=== PATIENT | male | born 1955 | race Caucasian/White ===

== ENCOUNTER 2023-01-15 15:25 | Emergency (ER) | payer MEDICARE, SELFPAY ==
[2023-01-15] VITALS (61 sets, daily range): BP systolic 86–132; BP diastolic 57–81; PULSE 89–118; RESP 15–41; TEMP 36.6; O2SAT 96–100
--- NOTE | 2023-01-15 15:51 | DI.RAD.S_ITS ---
PROCEDURE: XR CHEST 1V INDICATIONS: chest pain TECHNIQUE: One view of the chest was acquired. COMPARISON: None. FINDINGS: Surgical changes and devices: None. Lungs and pleura: Lungs are clear. No pleural effusions or pneumothorax. Mediastinum: Mediastinal contours appear normal. Heart size is normal. Bones and chest wall: No suspicious bony lesions. Overlying soft tissues appear unremarkable. IMPRESSION: No acute process Dictated by: Emmie Galvan M.D. on 01/15/2023 at 16:26 Approved by: Emmie Galvan M.D. on 01/15/2023 at 16:27
[2023-01-15] MEDS: ASPIRIN 81 MG CHEW TAB 324 MG PO (16:08)
[2023-01-15 16:11] LABS: Add Manual Diff / Slide Review NO; Basophils Absolute Auto 100 /uL (0-100); Basophils Percent Auto 0.5 % (0-2); Eosinophils Absolute Auto 100 /uL (0-450); Eosinophils Percent Auto 0.7 % (2-4); Hematocrit 40.7 % (41-53); Hemoglobin 13.9 g/dL (13.5-17.5); Lymphocytes Absolute Auto 700 /uL (1100-4500); Lymphocytes Percent Auto 5.6 % (25-40); Mean Corpuscular HGB Conc 34.1 % (30-36); Mean Corpuscular Hemoglobin 29.1 PG (26-34); Mean Corpuscular Volume 85.5 fL (80-100); Monocytes Absolute Auto 1200 /uL (0-900); Monocytes Percent Auto 9.3 % (3-14); Neutrophils Absolute Auto 10800 /uL (1500-7000); Neutrophils Percent Auto 83.9 % (50-75); Platelet Count 365 X10^3/uL (150-400); Red Blood Cell Count 4.76 X10^6/uL (4.5-5.9); Red Cell Distribution Width 14.7 % (11.6-14.8); White Blood Cell Count 12.9 X10^3/uL (4.5-11.0)
[2023-01-15 16:22] LABS: Alanine Aminotransferase 22 IU/L (<50); Albumin 4.1 g/dL (3.5-5.0); Albumin Globulin Ratio 1.1 (1.0-2.8); Alkaline Phosphatase 238 U/L (38-126); Aspartate Aminotransferase 32 IU/L (17-59); BUN Creatinine Ratio 17.4 (6-22); Bilirubin Total 0.6 mg/dL (0.2-1.3); Blood Urea Nitrogen 19 mg/dL (9-20); Carbon Dioxide 24 mmol/L (22-32); Chloride 95 mmol/L (98-107); Creatine Kinase 28 U/L (55-170); Estimated Glomerular Filt Rate > 60 mL/min (>60); Globulin 3.6 g/dL (1.7-4.1); Glucose 188 mg/dL (80-110); HEMOLYSIS < 15 (0-50); Lipase 112 U/L (23-300); Magnesium 2.1 mg/dL (1.6-2.3); Potassium 3.2 mmol/L (3.4-5.1); Sodium 131 mmol/L (137-145); Total Protein 7.7 g/dL (6.3-8.2)
[2023-01-15 16:32] LABS: NT-proBNP (BNP-Adult 18+) 558 pg/mL (<125); Troponin I 0.013 ng/mL (0.01-0.034)
[2023-01-15 16:38] LABS: INR 1.1 (0.9-1.3); Prothrombin Time 13.1 SECONDS (9.4-12.5)
[2023-01-15 16:41] LABS: PTT Partial Thromboplastin Tim 28 SECONDS (25.1-36.5)
--- NOTE | 2023-01-15 17:21 | PC.NURSE ---
Pt attempts to void 3 times and is unsuccessful. Last void at 1000. Bladder scan to be done and provider to be made aware.
[2023-01-15 17:36] LABS: Lactate (Lactic Acid) 1.6 mmol/L (0.7-2.1)
[2023-01-15] MEDS: LIDOCAINE 2% (GLYDO) 6 ML GEL TOP (17:43)
[2023-01-15 17:56] LABS: Procalcitonin 0.27 ng/mL (<0.5)
[2023-01-15 18:19] LABS: Appearance Urine UA CLEAR; Bilirubin Urine UA 1+ (NEGATIVE); Color Urine UA YELLOW; Glucose Urine UA NEGATIVE (Negative); Ketones Urine UA TRACE (NEGATIVE); Leukocyte Esterase Urine UA NEGATIVE (NEGATIVE); Nitrite Urine UA NEGATIVE (Negative); Occult Blood Urine UA NEGATIVE (Negative); Protein Urine UA 1+ (Negative); Specific Gravity Urine UA >=1.030 (1.000-1.035); pH Urine UA 5.5 (4.5-8.0)
[2023-01-15 18:24] LABS: D Dimer 4757 ng/ml (<500)
[2023-01-15 18:34] LABS: Amorphous Sediment Urine 1+; Bacteria Urine None Seen; RBC Urine None Seen (0-5/HPF); Renal Epithelial Cells Urine 1-5/HPF (0-1/HPF); Squamous Epithelial Cell Urine None Seen (0-5/HPF); WBC Urine None Seen (0-5/HPF)
[2023-01-15 18:35] LABS: Culture Indicated Urine Cult Not Indicated; Hyaline Casts Urine 1-5/LPF
[2023-01-15 18:37] LABS: Adenovirus Not Detected (Not Detect); B. parapertussis Not Detected (Not Detecte); Bordetella pertussis Not Detected (Not Detect); Chlamydophila pneumoniae Not Detected (Not Detect); Coronavirus 229E Not Detected (Not Detect); Coronavirus HKU1 Not Detected (Not Detect); Coronavirus NL 63 Not Detected (Not Detect); Coronavirus OC43 Not Detected (Not Detect); Human Metapneumovirus Not Detected (Not Detect); Human Rhinovirus/Enterovirus Not Detected (Not Detect); Influenza A Not Detected (Not Detect); Influenza B Not Detected (Not Detect); Mycoplasma pneumoniae Not Detected (Not Detect); Parainfluenza Virus 1 Not Detected (Not Detect); Parainfluenza Virus 2 Not Detected (Not Detect); Parainfluenza Virus 3 Not Detected (Not Detect); Parainfluenza Virus 4 Not Detected (Not Detect); Respiratory Syncytial Virus Not Detected (Not Detect); SARS- CoV-2 Not Detected (Not Detecte)
--- NOTE | 2023-01-15 18:43 | DI.CT.S_ITS ---
PROCEDURE: CT ABDOMEN PELVIS W CON INDICATIONS: abd pain LLq TECHNIQUE: After the administration of oral and IV contrast, axial sections were acquired from the lung bases to the pubic symphysis. Coronal and sagittal reformats were performed. For radiation dose reduction, the following was used: automated exposure control, adjustment of mA and/or kV according to patient size. COMPARISON: [facility], CT, CHEST/ABD/PELVIS W/CON (PNL), 04/24/2012, 10:18. [facility], CT, CHEST/ABD/PELVIS W/CON (PNL), 08/21/2012, 9:11. [facility], CT, CHEST/ABD/PELVIS W/CON (PNL), 02/18/2013, 10:26. [facility], CT, CT ANGIO CHEST PE PROTOCOL, 01/15/2023, 18:49. FINDINGS: Image quality: Excellent. Lung bases: Unremarkable. Heart: Advanced coronary artery calcification can be seen. ABDOMEN: Liver: No solid mass. There is a nodular appearing liver. There are poorly defined low-density masses seen within both the right lower and the left liver. These are new compared to 2014. The largest on the right measures up to 2.9 cm. The largest on the left measures up to 2.4 cm. Gallbladder: The gallbladder appears distended. No gallbladder wall thickening is seen. Biliary ducts: No biliary dilation. Pancreas: No ductal dilation. Spleen: Numerous low-density foci can be seen within the spleen, which appear mildly worse compared to 2014. Adrenal Glands: No adrenal nodules. Kidneys and Ureters: No hydronephrosis. No solid mass. Exophytic from the anterior aspect of the left kidney, there is a 2 cm mildly hyperdense cyst, which is only slightly progressed compared to 2014. At the inferior pole of the right kidney, there is a simple cyst seen. Stomach and Bowel: Normal colonic caliber, without significant wall thickening. Colonic diverticulosis is seen, without findings of active diverticulitis. Peritoneum: A hpsr-dn-dlqxsugg volume of simple appearing ascites is seen. No free air. The omentum appears irregular, with areas of enhancement. Ventral Wall: A moderately sized fat containing periumbilical hernia is seen, which is increased in size compared to 2014. Abdominal Nodes: Mildly enlarged upper abdominal lymph nodes are seen, including a asha hepatis lymph node on series 2, image 32 measuring 20 x 12 mm. Vessels: Aorta and inferior vena cava are normal in size. PELVIS: Pelvic Organs: Unremarkable. Bladder: A Zhu catheter is seen, which decompresses the bladder. Pelvic Nodes: No enlarged lymph nodes. Miscellaneous: Bilateral fat containing inguinal hernias are seen. Bones: Degenerative changes are seen throughout, particular involving the lower lumbar spine. IMPRESSION: Cirrhotic appearing liver, with poorly defined poorly enhancing lesions within the liver. Neoplasm is suspected, although differential diagnosis includes regenerating nodules. - For further evaluation, please consider a dedicated liver protocol MRI without and with IV contrast (assuming that there is no contraindication to MRI). There are low-density lesions seen within the spleen, which are mildly progressed compared to 2014. These are nonspecific, yet felt most likely be benign. There is a fvrn-qe-bvcgjtpk volume simple ascites. Mildly enlarged upper abdominal lymph nodes are seen, which are slightly progressed compared to 2014 and also most likely benign. Abnormal omentum, with areas of enhancement. Although this may simply be related to the patient's ascites, please consider peritoneal carcinomatosis. Additional findings: Advanced coronary artery calcification Likely benign left kidney complex cyst. Moderate periumbilical hernia Diverticulosis, without active diverticulitis Zhu catheter Bilateral fat containing inguinal hernias Dictated by: Yohannes Byrd M.D. on 01/15/2023 at 18:14 Approved by: Yohannes Byrd M.D. on 01/15/2023 at 18:24
--- NOTE | 2023-01-15 18:43 | DI.CT.S_ITS ---
PROCEDURE: CT ANGIO CHEST PE PROTOCOL INDICATIONS: pe suspected positive dimer TECHNIQUE: After the administration of intravenous contrast, 2 mm thick sections acquired from the pulmonary apices to the posterior costophrenic angles. 3-dimensional maximum intensity projection (MIP) coronal and sagittal reformats were then acquired through the thorax. For radiation dose reduction, the following was used: automated exposure control, adjustment of mA and/or kV according to patient size. COMPARISON: None. FINDINGS: Image quality: Diagnostic. Pulmonary arteries: Pulmonary arteries are normal in size, and demonstrate no intraluminal filling defects to suggest central pulmonary embolism. Lungs and pleura: Ill-defined patchy ground-glass opacities are seen scattered in posterior aspect of left upper lobe and bilateral lower lobes. Scattered atelectasis at bilateral lung bases also seen. No pleural effusions or pneumothorax. Central and peripheral airways are patent. Mediastinum: Heart size is normal, without pericardial effusion. Moderate atherosclerotic calcifications are noted in coronary vessels and thoracic aorta. No mediastinal or hilar adenopathy. Thoracic aorta is normal in caliber and enhancement. Esophagus is normal in caliber, without hiatal hernia. Bones and chest wall: No suspicious bony lesions. No acute vertebral body compression fracture. Degenerative disc disease throughout thoracic spine is seen with suggestion of DISH. No axillary or supraclavicular adenopathy. No thyroid nodules which require sonographic follow up, per consensus guidelines. Upper Abdomen: Moderate ascites fluid is seen in visualized upper abdomen. Please correlate with CT of abdomen and pelvis findings. IMPRESSION: 1. No pulmonary emboli. No thoracic aortic aneurysm or gross dissection. 2. Subtle hazy ground-glass opacities scattered in bilateral lower lobes and left upper lobe which may represent patchy area of pneumonitis versus pulmonary edema. No pleural effusion or pneumothorax. Airway is patent. 3. No mediastinal or hilar lymphadenopathy. Moderate atherosclerotic disease. 4. Moderate ascites fluid in included upper abdomen. Please correlate with CT of abdomen and pelvis findings. Dictated by: Juventino Appiah M.D. on 01/15/2023 at 19:40 Approved by: Juventino Appiah M.D. on 01/15/2023 at 19:48
--- NOTE | 2023-01-15 18:45 | ED.CHESTPAIN ---
HPI - Chest Pain General Chief Complaint: Chest Pain Stated Complaint: weakness, dyspnea, SOB, chest pain Time Seen by Provider: 01/15/23 17:24 Source: patient and family Mode of arrival: Wheelchair History of Present Illness HPI narrative: This is a 67-year-old man with a history of coronary artery disease, hypertension, hyperlipidemia, type 2 diabetes, lung cancer presently in remission who is here with 2 weeks of profound fatigue and dyspnea with ambulation. He says that he is had some very brief episodes of chest pain that lasts for ?seconds? and he describes these as ?normal? for him. Other than his fatigue he is had some left lower quadrant abdominal pain. He is not noted fevers chills or night sweats. He was seen 5 days ago would be general diagnosed with a urinary tract infection and started on Keflex which she is been taking. States he is also had surgery for parathyroid tumor in the past. Related Data Home Medications Medication Instructions Recorded Confirmed amlodipine 10 mg tablet 10 mg PO ONCE PM 01/15/23 01/15/23 cephalexin 500 mg capsule 500 mg PO 3XD 01/15/23 01/15/23 gemfibrozil 600 mg tablet 600 mg PO BID 01/15/23 01/15/23 lisinopril 5 mg tablet 5 mg PO DAILY 01/15/23 01/15/23 metformin 1,000 mg tablet 500 mg PO BID 01/15/23 01/15/23 rosuvastatin 40 mg tablet 40 mg PO DAILY 01/15/23 01/15/23 Allergies Allergy/AdvReac Type Severity Reaction Status Date / Time baclofen AdvReac Verified 01/15/23 15:57 Patient History Social History Smoking Status: Never smoker Smoking Status: Never smoker alcohol intake frequency: other Substance Use Type: does not use Exam Initial Vital Signs Initial Vital Signs: Vital Signs Temperature 98 F 01/15/23 15:52 Pulse Rate 104 H 01/15/23 15:52 Respiratory Rate 18 01/15/23 15:52 Blood Pressure 107/64 01/15/23 15:52 Pulse Oximetry 99 01/15/23 15:52 Oxygen Delivery Method Room Air 01/15/23 15:52 Course Orders Ordered: ED Orders 01/15/23 16:24 Respiratory Panel (Film Array) Stat 01/15/23 17:40 Blood Culture Stat 01/15/23 17:56 Ictotest Urine Stat UA Complete [Urinalysis and Microscopic] Stat 01/15/23 18:43 CT abdomen pelvis w con Stat CT angio chest PE protocol Stat Discontinued Medications Aspirin (Aspirin 81 Mg Chew Tab) 324 mg PO NOW ONE Stop: 01/15/23 15:52 Last Admin: 01/15/23 16:08 Dose: 324 mg Documented By: ROSANNE Lidocaine HCl (Lidocaine 2% (Glydo) 6 Ml Gel) 6 ml TOP NOW ONE Stop: 01/15/23 17:41 Last Admin: 01/15/23 17:43 Dose: 6 ml Documented By: SB Potassium Chloride (Potassium Chloride 20 Meq/15 Ml Udc) 20 meq PO NOW ONE Stop: 01/15/23 20:56 Last Admin: 01/15/23 21:01 Dose: 20 meq Documented By: ROSANNE Vital Signs Vital signs: Vital Signs - 8 hr 01/15/23 17:13 01/15/23 17:14 01/15/23 17:14 Pulse Rate 118 H 92 H Respiratory Rate 19 26 H Blood Pressure 86/63 L Pulse Oximetry 98 Oxygen Delivery Method 01/15/23 17:15 01/15/23 17:16 01/15/23 17:16 Pulse Rate 109 H 106 H Respiratory Rate 26 H 25 H Blood Pressure 95/69 Pulse Oximetry 99 99 Oxygen Delivery Method Room Air 01/15/23 17:20 01/15/23 17:20 01/15/23 17:25 Pulse Rate 105 H Respiratory Rate 18 Blood Pressure 96/63 97/61 Pulse Oximetry 100 Oxygen Delivery Method 01/15/23 17:25 01/15/23 17:30 01/15/23 17:30 Pulse Rate 105 H 105 H Respiratory Rate 21 18 Blood Pressure 98/64 Pulse Oximetry 99 98 Oxygen Delivery Method 01/15/23 17:35 01/15/23 17:40 01/15/23 17:45 Pulse Rate 106 H 108 H 108 H Respiratory Rate 16 20 30 H Blood Pressure Pulse Oximetry 98 97 98 Oxygen Delivery Method 01/15/23 17:50 01/15/23 17:55 01/15/23 17:59 Pulse Rate 104 H 101 H 101 H Respiratory Rate 28 H 34 H 23 Blood Pressure Pulse Oximetry 98 98 99 Oxygen Delivery Method Room Air 01/15/23 18:00 01/15/23 18:00 01/15/23 18:05 Pulse Rate 101 H 100 H Respiratory Rate 27 H 24 Blood Pressure 103/66 Pulse Oximetry 99 99 Oxygen Delivery Method 01/15/23 18:10 01/15/23 18:15 01/15/23 18:15 Pulse Rate 101 H 101 H Respiratory Rate 20 21 Blood Pressure 112/71 Pulse Oximetry 98 99 Oxygen Delivery Method 01/15/23 18:20 01/15/23 18:25 01/15/23 18:30 Pulse Rate 100 H 100 H Respiratory Rate 17 18 Blood Pressure 107/65 Pulse Oximetry 97 96 Oxygen Delivery Method 01/15/23 18:30 01/15/23 18:35 01/15/23 18:40 Pulse Rate 101 H 102 H 105 H Respiratory Rate 19 29 H 28 H Blood Pressure Pulse Oximetry 97 99 99 Oxygen Delivery Method 01/15/23 18:45 01/15/23 18:46 01/15/23 18:46 Pulse Rate 105 H 105 H Respiratory Rate 31 H 41 H Blood Pressure 115/81 Pulse Oximetry 99 99 Oxygen Delivery Method 01/15/23 18:50 01/15/23 18:55 01/15/23 19:11 Pulse Rate 104 H 101 H 93 H Respiratory Rate 27 H 24 23 Blood Pressure Pulse Oximetry 99 99 Oxygen Delivery Method Room Air 01/15/23 19:12 01/15/23 19:12 01/15/23 19:15 Pulse Rate 94 H Respiratory Rate 22 Blood Pressure 105/71 108/66 Pulse Oximetry 99 Oxygen Delivery Method 01/15/23 19:15 01/15/23 19:20 01/15/23 19:25 Pulse Rate 94 H 95 H 94 H Respiratory Rate 24 25 H 22 Blood Pressure Pulse Oximetry 100 98 99 Oxygen Delivery Method 01/15/23 19:30 01/15/23 19:30 01/15/23 19:35 Pulse Rate 95 H 93 H Respiratory Rate 24 19 Blood Pressure 120/70 Pulse Oximetry 100 99 Oxygen Delivery Method 01/15/23 19:40 01/15/23 19:45 01/15/23 19:45 Pulse Rate 93 H 94 H Respiratory Rate 23 27 H Blood Pressure 109/67 Pulse Oximetry 99 99 Oxygen Delivery Method 01/15/23 19:50 01/15/23 19:55 01/15/23 20:00 Pulse Rate 93 H 89 Respiratory Rate 28 H 20 Blood Pressure 105/68 Pulse Oximetry 99 100 Oxygen Delivery Method 01/15/23 20:00 01/15/23 20:05 01/15/23 20:10 Pulse Rate 91 H 91 H 90 Respiratory Rate 20 19 16 Blood Pressure Pulse Oximetry 99 98 98 Oxygen Delivery Method 01/15/23 20:15 01/15/23 20:15 01/15/23 20:20 Pulse Rate 91 H 92 H Respiratory Rate 18 15 Blood Pressure 107/68 Pulse Oximetry 99 98 Oxygen Delivery Method 01/15/23 20:25 01/15/23 20:30 01/15/23 20:30 Pulse Rate 94 H 95 H Respiratory Rate 20 16 Blood Pressure 109/67 Pulse Oximetry 99 99 Oxygen Delivery Method 01/15/23 20:35 01/15/23 20:40 01/15/23 20:45 Pulse Rate 95 H 92 H Respiratory Rate 16 17 Blood Pressure 114/65 Pulse Oximetry 99 99 Oxygen Delivery Method 01/15/23 20:45 01/15/23 20:50 01/15/23 20:55 Pulse Rate 90 96 H 93 H Respiratory Rate 23 21 Blood Pressure Pulse Oximetry 98 99 99 Oxygen Delivery Method 01/15/23 21:00 01/15/23 21:00 01/15/23 21:05 Pulse Rate 93 H 96 H Respiratory Rate 24 19 Blood Pressure 132/63 Pulse Oximetry 98 99 Oxygen Delivery Method Room Air MDM - Chest Pain Lab Data Lab results narrative: CBC remarkable for a white count of 12.9, CMP remarkable for potassium of 3.2. D-dimer is elevated, INR normal, troponin is normal proBNP is slightly elevated. Respiratory PCR is negative. Urinalysis unremarkable 01/15/23 15:58 01/15/23 15:58 Labs: Lab Results 01/15/23 01/15/23 01/15/23 Range/Units 15:53 15:58 16:05 WBC 12.9 H (4.5-11.0) X10^3/uL RBC 4.76 (4.5-5.9) X10^6/uL Hgb 13.9 (13.5-17.5) g/dL Hct 40.7 L (41-53) % MCV 85.5 (80-100) fL MCH 29.1 (26-34) PG MCHC 34.1 (30-36) % RDW 14.7 (11.6-14.8) % Plt Count 365 (150-400) X10^3/uL Neut % (Auto) 83.9 H (50-75) % Lymph % (Auto) 5.6 L (25-40) % [place] % (Auto) 9.3 (3-14) % Eos % (Auto) 0.7 L (2-4) % Baso % (Auto) 0.5 (0-2) % Neut # (Auto) 25486 H (3930-4859) /uL Lymph # (Auto) 700 L (6818-1790) /uL [place] # (Auto) 1200 H (0-900) /uL Eos # (Auto) 100 (0-450) /uL Baso # (Auto) 100 (0-100) /uL PT 13.1 H (9.4-12.5) SECONDS INR 1.1 (0.9-1.3) APTT 28 (25.1-36.5) SECONDS D-Dimer 4757 H (<500) ng/ml Sodium 131 L (137-145) mmol/L Potassium 3.2 L (3.4-5.1) mmol/L Chloride 95 L (98-107) mmol/L Carbon Dioxide 24 (22-32) mmol/L BUN 19 (9-20) mg/dL Creatinine 1.09 (0.66-1.25) mg/dL Estimated GFR > 60 (>60) mL/min BUN/Creatinine Ratio 17.4 (6-22) Glucose 188 H (80-110) mg/dL Lactate 1.6 (0.7-2.1) mmol/L Calcium 10.0 (8.4-10.2) mg/dL Magnesium 2.1 (1.6-2.3) mg/dL Total Bilirubin 0.6 (0.2-1.3) mg/dL AST 32 (17-59) IU/L ALT 22 (<50) IU/L Alkaline Phosphatase 238 H (38-126) U/L Total Creatine Kinase 28 L (55-170) U/L Troponin I 0.013 (0.01-0.034) ng/mL NT-Pro-B Natriuret Pep 558 H (<125) pg/mL Total Protein 7.7 (6.3-8.2) g/dL Albumin 4.1 (3.5-5.0) g/dL Globulin 3.6 (1.7-4.1) g/dL Albumin/Globulin Ratio 1.1 (1.0-2.8) Lipase 112 (23-300) U/L Procalcitonin 0.27 (<0.5) ng/mL Urine Color Urine Appearance Urine pH (4.5-8.0) Ur Specific [place] (1.000-1.035) Urine Protein (Negative) Urine Glucose (UA) (Negative) g/dL Urine Ketones (NEGATIVE) Urine Occult Blood (Negative) Urine Nitrate (Negative) Urine Bilirubin (NEGATIVE) Ur Bilirubin Confirm Urine Urobilinogen (0.2) E.U./dL Ur Leukocyte Esterase (NEGATIVE) Urine RBC (0-5/HPF) Urine WBC (0-5/HPF) Ur Squamous Epith Cells (0-5/HPF) Ur Renal Epithelial Cell (0-1/HPF) Amorphous Sediment Urine Bacteria (None) Hyaline Casts (None) Ur Culture Indicated? Chlamy pneumoniae PCR (Not Detect) Adenovirus (PCR) (Not Detect) B.parapertussis DNA PCR (Not Detecte) Coronavirus OC43 (PCR) (Not Detect) Coronavirus HKU1 (PCR) (Not Detect) Coronavirus 229E (PCR) (Not Detect) SARS-CoV-2 (PCR) Cancelled Coronavirus NL63 (PCR) (Not Detect) Human Metapneumovir PCR (Not Detect) Influenza A (RT-PCR) Cancelled Influenza Type A (PCR) (Not Detect) Influenza B (RT-PCR) Cancelled Influenza Type B (PCR) (Not Detect) M. pneumoniae (PCR) (Not Detect) Parainfluenza 1 (PCR) (Not Detect) Parainfluenza 2 (PCR) (Not Detect) Parainfluenza 3 (PCR) (Not Detect) Parainfluenza 4 (PCR) (Not Detect) RSV (PCR) Cancelled Entero/Rhino (PCR) (Not Detect) 01/15/23 01/15/23 Range/Units 16:24 17:56 WBC (4.5-11.0) X10^3/uL RBC (4.5-5.9) X10^6/uL Hgb (13.5-17.5) g/dL Hct (41-53) % MCV (80-100) fL MCH (26-34) PG MCHC (30-36) % RDW (11.6-14.8) % Plt Count (150-400) X10^3/uL Neut % (Auto) (50-75) % Lymph % (Auto) (25-40) % [place] % (Auto) (3-14) % Eos % (Auto) (2-4) % Baso % (Auto) (0-2) % Neut # (Auto) (0346-0056) /uL Lymph # (Auto) (7016-1919) /uL [place] # (Auto) (0-900) /uL Eos # (Auto) (0-450) /uL Baso # (Auto) (0-100) /uL PT (9.4-12.5) SECONDS INR (0.9-1.3) APTT (25.1-36.5) SECONDS D-Dimer (<500) ng/ml Sodium (137-145) mmol/L Potassium (3.4-5.1) mmol/L Chloride (98-107) mmol/L Carbon Dioxide (22-32) mmol/L BUN (9-20) mg/dL Creatinine (0.66-1.25) mg/dL Estimated GFR (>60) mL/min BUN/Creatinine Ratio (6-22) Glucose (80-110) mg/dL Lactate (0.7-2.1) mmol/L Calcium (8.4-10.2) mg/dL Magnesium (1.6-2.3) mg/dL Total Bilirubin (0.2-1.3) mg/dL AST (17-59) IU/L ALT (<50) IU/L Alkaline Phosphatase (38-126) U/L Total Creatine Kinase (55-170) U/L Troponin I (0.01-0.034) ng/mL NT-Pro-B Natriuret Pep (<125) pg/mL Total Protein (6.3-8.2) g/dL Albumin (3.5-5.0) g/dL Globulin (1.7-4.1) g/dL Albumin/Globulin Ratio (1.0-2.8) Lipase (23-300) U/L Procalcitonin (<0.5) ng/mL Urine Color Yellow Urine Appearance Clear Urine pH 5.5 (4.5-8.0) Ur Specific [place] >=1.030 H (1.000-1.035) Urine Protein 1+ H (Negative) Urine Glucose (UA) Negative (Negative) g/dL Urine Ketones Trace H (NEGATIVE) Urine Occult Blood Negative (Negative) Urine Nitrate Negative (Negative) Urine Bilirubin 1+ H (NEGATIVE) Ur Bilirubin Confirm TNP Urine Urobilinogen 1.0 (0.2) E.U./dL Ur Leukocyte Esterase Negative (NEGATIVE) Urine RBC None seen (0-5/HPF) Urine WBC None seen (0-5/HPF) Ur Squamous Epith Cells None seen (0-5/HPF) Ur Renal Epithelial Cell 1-5/hpf H (0-1/HPF) Amorphous Sediment 1+ Urine Bacteria None seen (None) Hyaline Casts 1-5/lpf (None) Ur Culture Indicated? Cult not indicated Chlamy pneumoniae PCR Not detected (Not Detect) Adenovirus (PCR) Not detected (Not Detect) B.parapertussis DNA PCR Not detected (Not Detecte) Coronavirus OC43 (PCR) Not detected (Not Detect) Coronavirus HKU1 (PCR) Not detected (Not Detect) Coronavirus 229E (PCR) Not detected (Not Detect) SARS-CoV-2 (PCR) Not detected Coronavirus NL63 (PCR) Not detected (Not Detect) Human Metapneumovir PCR Not detected (Not Detect) Influenza A (RT-PCR) Influenza Type A (PCR) Not detected (Not Detect) Influenza B (RT-PCR) Influenza Type B (PCR) Not detected (Not Detect) M. pneumoniae (PCR) Not detected (Not Detect) Parainfluenza 1 (PCR) Not detected (Not Detect) Parainfluenza 2 (PCR) Not detected (Not Detect) Parainfluenza 3 (PCR) Not detected (Not Detect) Parainfluenza 4 (PCR) Not detected (Not Detect) RSV (PCR) Not detected Entero/Rhino (PCR) Not detected (Not Detect) Imaging Data Chest x-ray: My Impression: No acute disease Radiologist's Impression: No acute disease CT scan - abdomen/pelvis: Radiologist's Impression: Cirrhotic appearing liver, with poorly defined poorly enhancing lesions within the liver. Neoplasm is suspected, although differential diagnosis includes regenerating nodules. - For further evaluation, please consider a dedicated liver protocol MRI without and with IV contrast (assuming that there is no contraindication to MRI). There are low-density lesions seen within the spleen, which are mildly progressed compared to 2014. These are nonspecific, yet felt most likely be benign. There is a [id number]-[id number] volume simple ascites. Mildly enlarged upper abdominal lymph nodes are seen, which are slightly progressed compared to 2014 and also most likely benign. Abnormal omentum, with areas of enhancement. Although this may simply be related to the patient's ascites, please consider peritoneal carcinomatosis. Additional findings: Advanced coronary artery calcification Likely benign left kidney complex cyst. Moderate periumbilical hernia Diverticulosis, without active diverticulitis Zhu catheter Bilateral fat containing inguinal hernias Dictated by: Beata CT scan - chest: My Impression: No pulmonary embolism, no airspace disease Radiologist's Impression: MPRESSION: 1. No pulmonary emboli. No thoracic aortic aneurysm or gross dissection. 2. Subtle hazy ground-glass opacities scattered in bilateral lower lobes and left upper lobe which may represent patchy area of pneumonitis versus pulmonary edema. No pleural effusion or pneumothorax. Airway is patent. 3. No mediastinal or hilar lymphadenopathy. Moderate atherosclerotic disease. 4. Moderate ascites fluid in included upper abdomen. Please correlate with CT of abdomen and pelvis findings. Dictated by: Juventino Appiah M.D. on 01/15/2023 at 19:40 Approved by: Juventino Appiah M.D. on 01/15/2023 at 19:48 ECG Data Interpretation: EKG shows sinus tachycardia 104. Her bili 174 QRS duration is 80 there is an old anterior infarct, no acute ST segment changes also has Q's in 3 and AVF consistent with old inferior infarction. No old EKG available for comparison. [facility] Narrative Medical decision making narrative: 67-year-old male presenting with progressive fatigue and dyspnea with exertion. He is not febrile, he is not having prolonged chest pain he is able to hydrate orally and he does not appear to be toxic. Has evidence of some ascites and appears to be newly diagnosed hepatic masses on CT. This warrants further investigation which I think can be done as an outpatient. He is to follow up soon with his primary care provider and indications for return to the emergency department were reviewed. Pulmonary embolism was considered, CT angiogram is negative for this. Ischemic heart disease is considered, his symptoms do not include chest pain and troponin is normal today. Discharge Plan Departure Patient Disposition: Home Clinical Impression: Liver mass Fatigue Qualifiers: Fatigue type: unspecified Qualified Code(s): R53.83 - Other fatigue Ascites Qualifiers: Ascites type: other type Qualified Code(s): R18.8 - Other ascites Activity Restrictions/Additional Instructions: Emergency department evaluation today demonstrate some concerning findings which will require further evaluation through your primary care provider. At this point, I do not think that you need an acute care hospitalization. CT of the abdomen today shows that you have a small amount of fluid in your abdomen called ascites as well as masses in your liver. These will require further evaluation as above. I recommend you get adequate fluids rest and contact your primary care provider for close follow-up. If you are having increasing abdominal pain fevers frequent vomiting shortness of breath at rest or other acute symptoms return to the emergency department. Prescriptions: No Action amlodipine 10 mg tablet 10 mg PO ONCE PM gemfibrozil 600 mg tablet 600 mg PO BID cephalexin 500 mg capsule 500 mg PO 3XD metformin 1,000 mg tablet 500 mg PO BID lisinopril 5 mg tablet 5 mg PO DAILY rosuvastatin 40 mg tablet 40 mg PO DAILY Referrals: Elayne Leon PA-C [Primary Care Provider] - Stand Alone Forms: Patient Portal/API
[2023-01-15] MEDS: POTASSIUM CHLORIDE 20 MEQ/15 ML UDC PO (21:01)
== END 2023-01-15 21:12 | disposition home or self-care (01) ==
PROVIDERS: Emergency Medicine; Emergency Provider Emergency Medicine; PCP Physician Assistant Medical
DX: R06.09 Other forms of dyspnea (principal); R18.8 Other ascites; R07.9 Chest pain, unspecified
CPT/HCPCS: 36415; 51701; 51798; 71045; 71275; 74177; 80053; 81001; 82550; 83605; 83690; 83735; 83880; 84145; 84484; 85025; 85379; 85610; 85730; 87040; 87633; 93005; 93010; 99284; 99285; Q9967